=== PATIENT | female | born 1985 | race African-American/Black ===

== ENCOUNTER 2017-03-08 07:29 | Day surgery (SDC) | payer BC ==
[~2017-03-08] VITALS: Ht 170.2 cm; Wt 133.2 kg
--- NOTE | ~2017-03-08 | OP ---
PATIENT NAME: MICHAEL CHRISTOPHER MEDICAL RECORD: [id number] LOCATION:[facility] ADMISSION DATE: SURGEON: HARI MARISCAL MD DATE OF OPERATION: 03/08/2017 PREOPERATIVE DIAGNOSES: Menorrhagia and thickened endometrium on ultrasound, refractory to medical treatment. POSTOPERATIVE DIAGNOSIS: Likely polycystic ovary syndrome. PROCEDURE: Hysteroscopy, D&C. SURGEON: Hari Mariscal MD ANESTHESIA: General endotracheal. INTRAVENOUS FLUIDS: Per anesthesia records. FINDINGS: Proliferative appearing thickened endometrium. SPECIMENS: Endometrial curettings. ESTIMATED BLOOD LOSS: Minimal. HYSTEROSCOPIC FLUID LOSS: Approximately 200 cc of 0.9 normal saline. COMPLICATIONS: None apparent. DESCRIPTION OF PROCEDURE: The patient was taken to the operating room where general anesthesia was achieved without difficulty. The patient was prepped and draped in normal sterile fashion in the dorsal lithotomy position in the [facility]. Vagina was prepped and draped in normal sterile fashion. The bladder was drained of approximately 100 cc of clear yellow urine. A Graves speculum was placed into the vagina. The cervix was grasped on its anterior lip with a single-tooth tenaculum and the uterus sounded to approximately 9 cm. Dilation was performed for approximately 6 mm at which point, the hysteroscope was placed into the uterus without resistance or difficulty under direct visualization. Survey of the endometrial canal to the level of the fundus was performed and then curettage was performed of all quadrants of the endometrial cavity. Specimen was sent to pathology. The curette was removed. Single-tooth tenaculum removed. The patient tolerated the procedure well, was transferred to postanesthesia recovery stable without incident. TRANSINT:[id number] Voice Confirmation ID: [id number] DOCUMENT ID: [id number] HARI MARISCAL MD CC: [id number] DICTATION DATE: 04/01/17 0701 [place] [facility] OPERATOR: 04/01/17 1346 [facility] 03/08/17 [place] [id number]
[~2017-03-08 07:29] MED LIST: HYDROCODON-ACE1 EAC7 PO; IBUPROFEN200 MG PO
[2017-03-08 08:34] VITALS: BP 135/90; Ht 170.2 cm; Wt 133.2 kg
[2017-03-08 08:40] LABS: HCG URINE NEGATIVE (NEGATIVE)
[2017-03-08 09:10] LABS: HEMATOCRIT 32.3 % (36.0-48.0); HEMOGLOBIN 10.1 g/dL (12-16); LYMPHOCYTES 48.3 % (15-50); MCH 23.3 pg (26.0-34.0); MCHC 31.3 g/dL (31.0-37.0); MCV 74.4 fL (80.0-100.0); MEAN PLATELET VOLUME 8.4 fL (7.4-10.4); NEUTROPHILS 45.8 % (40-80); PLATELET COUNT 318 10x3/uL (130-400); RBC 4.34 10x6/uL (4.00-5.40); RDW 14.8 % (11.5-14.5); WBC 5.9 10x3/uL (4.8-10.8)
== END 2017-03-08 15:30 | disposition home or self-care (01) ==
LOC: D.OPS 07:29
PROVIDERS: Obstetrics & Gynecology
DX: E28.2 Polycystic ovarian syndrome (principal); R93.8 Abnormal findings on diagnostic imaging of other specified body structures

== ENCOUNTER 2019-02-19 23:58 | Emergency (ER) | payer BC ==
[~2019-02-19] VITALS: Ht 170.2 cm; Wt 133.2 kg
[2019-02-20 00:07] VITALS: Ht 170.2 cm; Wt 133.2 kg
[2019-02-20] MEDS ORDERED: BIRTH CONTROL (00:08)
[2019-02-20] MEDS ORDERED: CATAPRES0.1 MG PO (00:33)
[2019-02-20 00:42] LABS: BASOPHILS 0.2 % (0-2); EOSINOPHILS 1.4 % (0-7); HEMATOCRIT 37.6 % (36.0-48.0); HEMOGLOBIN 12.2 g/dL (12-16); IMMATURE GRANULOCYTES 0.2 % (0-5); LYMPHOCYTES 34.3 % (15-50); MCH 25.5 pg (26.0-34.0); MCHC 32.4 g/dL (31.0-37.0); MCV 78.5 fL (80.0-100.0); MEAN PLATELET VOLUME 8.7 fL (7.4-10.4); MONOCYTES 7.1 % (2-11); NEUTROPHILS 56.8 % (40-80); PLATELET COUNT 297 10x3/uL (130-400); RBC 4.79 10x6/uL (4.00-5.40); RDW 14.8 % (11.5-14.5); WBC 9.5 10x3/uL (4.8-10.8)
[2019-02-20 00:48] LABS: CALC OSMOLALITY 280 mosm/kg (275-300); CALCIUM 8.5 mg/dL (8.5-10.1); CARBON DIOXIDE 30.2 mmol/L (21.0-32.0); CHLORIDE - SERUM 105 mmol/L (98-107); CREATININE - SERUM 0.9 mg/dL (0.6-1.3); GLUCOSE 95 mg/dL (74-106); POTASSIUM - SERUM 3.6 mmol/L (3.5-5.1); SODIUM 142 mmol/L (136-145); UREA NITROGEN 8 mg/dL (7-18); eGFR NON AFRICAN AMERICAN 75 mL/min (90-120)
[2019-02-20 01:04] LABS: ALBUMIN 3.1 g/dL (3.4-5.0); ALKALINE PHOSPHATASE 63 U/L (46-116); ALT (SGPT) 17 U/L (10-68); BILIRUBIN - TOTAL 0.26 mg/dL (0.2-1.3); PRO BNP 39 pg/mL (0-125); THYROID STIMULATING HORMONE 2.71 uIU/mL (0.36-3.74)
[2019-02-20 01:06] LABS: TROPONIN-I < 0.017 ng/mL (0.000-0.060)
[2019-02-20 01:10] VITALS: BP 116/75
== END 2019-02-20 01:10 | disposition home or self-care (01) ==
LOC: D.ER 23:58
PROVIDERS: Family Medicine
DX: I10 Essential (primary) hypertension (principal)